=== PATIENT | male | born 1995 | race Two or more races ===

== ENCOUNTER 2019-01-14 16:15 | Emergency (ER) | payer MEDICAID ==
[~2019-01-14] VITALS: Ht 170.2 cm; Wt 49.9 kg
--- NOTE | 2019-01-14 17:02 | NUR ---
Dr. Mosher at the bedside for MSE.
--- NOTE | 2019-01-14 17:15 | NUR ---
Patient discharged to home in stable conditon. Written and verbal after care instructions given. Patient verbalizes understanding of instructions.
== END 2019-01-14 17:15 | disposition home or self-care (01) ==
LOC: ER 16:18
DX: R11.2 Nausea with vomiting, unspecified (principal); J45.909 Unspecified asthma, uncomplicated; Z88.0 Allergy status to penicillin; Z88.1 Allergy status to other antibiotic agents; Z88.8 Allergy status to other drugs, medicaments and biological substances
CPT/HCPCS: A4663